=== PATIENT | female | born 1995 | race Caucasian/White ===

== ENCOUNTER 2016-12-10 21:53 | Emergency (ER) | payer BC, MEDICAID ==
[2016-12-10 22:10] VITALS: BP 135/93
[2016-12-10] MEDS ORDERED: LORazepam 2 MG/ML MDV IVPUSH ONE (22:32)
[2016-12-10] MEDS ORDERED: Sodium Chloride 0.9% 10 ML Syringe FLUSH PRN (22:32)
[2016-12-10] MEDS ORDERED: Sodium Chloride 0.9% 1,000 ML IV SCH (22:45)
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
== END 2016-12-11 00:30 | disposition home or self-care (01) ==
LOC: JD.ED 21:53
DX: R10.84 Generalized abdominal pain (principal); R19.7 Diarrhea, unspecified; F41.9 Anxiety disorder, unspecified; F32.9 Major depressive disorder, single episode, unspecified; Z98.890 Other specified postprocedural states; F17.210 Nicotine dependence, cigarettes, uncomplicated; Z79.899 Other long term (current) drug therapy; Z88.0 Allergy status to penicillin; Z88.1 Allergy status to other antibiotic agents; Z91.040 Latex allergy status
CPT/HCPCS: 36415; 80053; 85025; 96361; 96374; 99283; J2060; J7040; J7050; 99284

== ENCOUNTER 2021-06-08 19:11 | Emergency (ER) | payer MEDICAID ==
[2021-06-08 19:45] VITALS: BP 134/88; PULSE 114
[2021-06-08] MEDS ORDERED: Acetaminophen 325 MG Tab PO ONE (20:02)
[2021-06-08] MEDS ORDERED: Ondansetron 4 MG Tab.DIS PO ONE (20:02)
--- NOTE | 2021-06-08 20:08 | EDM.PDOC ---
ED HPI GENERAL MEDICAL PROBLEM - General Chief Complaint: Back Pain or Injury Stated Complaint: LOWER BACK PAIN/DIARRHEA/SOB Time Seen by Provider: 06/08/21 19:50 Source of Information: Reports: Patient History Limitations: Reports: No Limitations - History of Present Illness INITIAL COMMENTS - FREE TEXT/NARRATIVE: Patient is a 26-year-old female presenting to the emergency room with Covid type symptoms. Patient has a past medical history of obesity and smoking. Patient is unvaccinated. Patient started having symptoms today. Symptoms include loss of appetite, nausea, body aches, fatigue, low back pain, shortness of breath. Patient additionally has a dry cough. Patient exposed to daughter who was sick with Covid starting on Sunday. Patient denies any chest pain, lower extremity swelling, calf pain, history of DVT or PE. Patient does not take any medications on a regular basis. Bilateral Lower Posterior Back Pain Score (Numeric/FACES): 6 - Related Data Allergies Allergy/AdvReac Type Severity Reaction Status Date / Time amoxicillin Allergy Rash Verified 06/08/21 19:45 azithromycin [From Zithromax] Allergy Diarrhea Verified 06/08/21 19:45 latex Allergy Rash Verified 06/08/21 19:45 Penicillins Allergy Rash Verified 06/08/21 19:45 Home Meds: Home Meds Ondansetron [Zofran ODT] 4 mg PO Q6H PRN #12 tab.dis 06/08/21 [Rx] Past Medical History HEENT History: Reports: Cataract, Impaired Vision Other HEENT History: glasses Cardiovascular History: Reports: None Respiratory History: Reports: None Gastrointestinal History: Reports: None Genitourinary History: Reports: Renal Calculus, UTI, Recurrent 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 History: Reports: None Neurological History: Reports: Migraines Psychiatric History: Reports: ADD, Addiction, Anxiety, Depression, Emotional Problems, Hallucinations, Mood Swings, Panic Attack, Suicidal Ideation Endocrine/Metabolic History: Reports: None Hematologic History: Reports: None Immunologic History: Reports: None Oncologic (Cancer) History: Reports: None Dermatologic History: Reports: None - Infectious Disease History Infectious Disease History: Reports: Chicken Pox - Past Surgical History Head Surgeries/Procedures: Reports: None HEENT Surgical History: Reports: Adenoidectomy, Tonsillectomy GI Surgical History: Reports: Cholecystectomy Social & Family History - Family History Cardiac: Reports: Hypertension Psychiatric: Reports: Suicide Attempt Endocrine/Metabolic: Reports: Diabetes, type II, Hyperthyroidism Oncologic: Reports: Breast - Tobacco Use Tobacco Use Status *Q: Current Every Day Tobacco User Years of Tobacco use: 10 Packs/Tins Daily: 0.5 Second Hand Smoke Exposure: No - Caffeine Use Caffeine Use: Reports: Soda Caffeine Use Comment: 1 per day - Recreational Drug Use Recreational Drug Use: No ED ROS GENERAL - Review of Systems Review Of Systems: See Below Free Text/Narrative/Comment: In addition to that documented in the HPI above, the additional ROS was obtained: Constitutional: Per HPI Eyes: Denies vision changes ENMT: Denies sore throat CV: Denies chest pain Resp: Per HPI GI: Denies vomiting or diarrhea : Denies painful urination MSK: Denies recent trauma Skin: Denies new rashes Neuro: Denies new numbness or tingling or weakness Endocrine: Denies unexpected weight loss Heme: Denies bleeding disorders ED EXAM, GENERAL - Physical Exam Exam: See Below Free Text/Narrative:: I have reviewed the triage vital signs Const: Well nourished, well developed, appears stated age Eyes: Pupils Equal and reactive to light bilaterally, no conjunctival injection HENT: No signs of trauma or swelling, Neck supple without meningismus CV: Tachycardia with regular rhythm, Warm, well-perfused extremities RESP: Unlabored respiratory effort GI: soft, non-tender, non-distended, no masses MSK: No gross deformities appreciated Skin: Warm, dry. No rashes Neuro: Alert, latrine cleaner II-XII grossly intact. Sensation and motor function of extremities grossly intact. Psych: Appropriate mood and affect. Course - Vital Signs Last Recorded V/S: Last Vital Signs Temp 36.9 C 06/08/21 19:38 Pulse 114 H 06/08/21 19:38 Resp 16 06/08/21 19:38 BP 134/88 06/08/21 19:38 Pulse Ox 96 06/08/21 19:38 - Orders/Labs/Meds Labs: Laboratory Tests 06/08/21 Range/Units 19:57 SARS-CoV-2 RNA ([facility]) Negative (NEGATIVE) Meds: Medications Discontinued Medications Generic Name Dose Route Start Last Admin Trade Name Freq PRN Reason Stop Dose Admin Acetaminophen 650 mg 06/08/21 20:02 06/08/21 20:15 Acetaminophen 325 Mg Tab PO 06/08/21 20:03 650 mg NOW ONE Administration Ondansetron HCl 4 mg 06/08/21 20:02 06/08/21 20:15 Ondansetron 4 Mg Tab.Dis PO 06/08/21 20:03 4 mg ONETIME ONE Administration - Re-Assessments/Exams Free Text/Narrative Re-Assessment/Exam: 06/08/21 20:07 Patient was informed that she would qualify for antibody infusion based on BMI and smoking history. We discussed risks and benefits. Patient declined wanting any sort of treatment for COVID-19. Addressed all her questions. She confirmed understanding. Departure - Departure Time of Disposition: 21:00 Disposition: Home, Self-Care 01 Clinical Impression: Exposure to COVID-19 virus, Low back pain - Discharge Information Prescriptions: Ondansetron [Zofran ODT] 4 mg PO Q6H PRN #12 tab.dis PRN Reason: Nausea Instructions: COVID-19 Frequently Asked Questions Referrals: PCP,Not In Area [Primary Care Provider] - Forms: ED Department Discharge Additional Instructions: With your Covid exposure, you still need to stay home and quarantine for 10 days. I would recommend repeat test in 48 hours if you continue to have symptoms. Otherwise, take Zofran as prescribed. Return to the emergency room for difficulty breathing or any other emergent concerns. Sepsis Event Note (ED) - Evaluation Sepsis Screening Result: No Definite Risk - Focused Exam Vital Signs: Vital Signs Temp Pulse Resp BP Pulse Ox 06/08/21 19:38 36.9 C 114 H 16 134/88 96 - Assessment/Plan Assessment:: Patient is a 26-year-old female presented to emergency room with chief complaint of COVID type symptoms. Patient had unremarkable exam. Mild tachycardia likely secondary to pain. No evidence of hypoxia, hypotension or respiratory distress. Patient had COVID-19 test which was negative in the emergency room. However, symptoms are so concerning for Covid infection and patient did have recent exposure. I recommend continued quarantine and repeat test in 48 hours. Given prescription for Zofran to help with nausea. All questions were addressed and answered. Patient agrees with plan of care. Return precautions discussed visual.
== END 2021-06-08 21:08 | disposition home or self-care (01) ==
LOC: JD.ED 19:11
DX: M54.50 Low back pain, unspecified (principal); F17.200 Nicotine dependence, unspecified, uncomplicated; E66.9 Obesity, unspecified; Z68.41 Body mass index [BMI] 40.0-44.9, adult; Z88.0 Allergy status to penicillin; Z88.1 Allergy status to other antibiotic agents; Z91.040 Latex allergy status; Z20.822 Contact with and (suspected) exposure to COVID-19
CPT/HCPCS: 87635; 99283; A9270; U0002

== ENCOUNTER 2021-10-27 18:19 | Emergency (ER) | payer MEDICAID ==
[2021-10-27 18:40] VITALS: BP 146/92; PULSE 117
[2021-10-27] MEDS ORDERED: Sodium Chloride 0.9% 10 ML Syringe FLUSH PRN (19:07)
[2021-10-27 20:07] LABS: CORONAVIRUS COVID-19 NAA NEGATIVE (NEGATIVE)
[2021-10-27] MEDS ORDERED: Potassium Chloride 20 MEQ Tab.ER PO ONE (20:39)
== END 2021-10-27 20:56 | disposition home or self-care (01) ==
LOC: JD.ED 18:19
DX: J10.1 Influenza due to other identified influenza virus with other respiratory manifestations (principal); E11.9 Type 2 diabetes mellitus without complications; Z88.0 Allergy status to penicillin; Z91.040 Latex allergy status; Z88.1 Allergy status to other antibiotic agents; Z79.84 Long term (current) use of oral hypoglycemic drugs; Z72.0 Tobacco use; Z20.822 Contact with and (suspected) exposure to COVID-19
CPT/HCPCS: 0241U; 36415; 71045; 80053; 81001; 83735; 84443; 85025; 85379; 86140; 87086; 99285; A9270; 99284